=== PATIENT | female | born 1975 ===

== ENCOUNTER 2025-03-23 06:21 | Day surgery (SDC) | payer OTHER, SELFPAY ==
[2025-03-15 11:22] LABS: Hematocrit 39.2 % (37.0-47.0); Hemoglobin 13.6 g/dL (12.0-16.0); Mean Corp Hgb Conc. 34.7 g/dL (33.0-37.0); Mean Corpuscular Volume 92.0 fL (81.0-99.0); Platelet Count 260 10^3/uL (130-400); Red Cell Dist. Width 11.6 % (11.5-14.5)
[2025-03-15 11:30] LABS: INR 0.89; PT 12.4 Sec (11.4-14.6)
[2025-03-15 11:31] LABS: APTT 25.7 Sec (23.4-35.0)
[2025-03-15 11:55] LABS: ALT (SGPT) 21 U/L (0-35); AST (SGOT) 30 U/L (14-36); Albumin 4.5 g/dl (3.5-5.0); Alkaline Phosphatase 81 U/L (38-126); Blood Urea Nitrogen 11 mg/dl (7-17); Calcium 9.2 mg/dl (8.4-10.2); Carbon Dioxide 27 mmol/L (22-30); Chloride 104 mmol/L (98-107); Glucose 73 mg/dl (70-99); Potassium 4.3 mmol/L (3.5-5.1); Sodium 136 mmol/L (135-145); Total Protein 7.1 g/dl (6.3-8.2); eGFR > 60.00
[2025-03-15 14:16] VITALS: BMI 25.5
[2025-03-23] VITALS (10 sets, daily range): BP systolic 120–145; BP diastolic 78–92; BMI 25.5
[2025-03-23] MEDS: TYLENOL 1000 MG PO (11:05)
[2025-03-23] MEDS: NEURONTIN 300 MG PO (11:05)
[2025-03-23] MEDS: NORMOSOL-R/PLASMALYTE-A 1000 IV (11:06)
[2025-03-23] MEDS: TRANSDERM-SCOP 1 PATCH TRANSDERM (12:34)
[2025-03-23] MEDS: HEPARIN 5000 UNITS SC (12:34)
--- NOTE | 2025-03-23 14:26 | OR.RPT ---
Operative Report
Operative Report
DATE OF OPERATION: March 23, 2025
PREOPERATIVE DIAGNOSIS: Left Thyroid Nodule - E041
POSTOPERATIVE DIAGNOSIS: Same
SURGEON: Dash Stock M.D.
OPERATION: Left Thyroidectomy and Limited Neck Dissection - [id number]
ANESTHESIA: GET
ESTIMATED BLOOD LOSS: 15 cc
DRAINS: None
SPECIMEN: left total thyroid lobe and isthmus, and left level paratracheal tissue
FINDINGS: left thyroid nodule
COMPLICATIONS: None
PROCEDURE:
The patient was taken to the operating room and placed in the usual supine position. After adequate general endotracheal anesthesia was established, the patient�s neck was extended, prepped, and draped in the typical sterile fashion. A 4 cm
transcervical incision was made two fingerbreadths above the sternal notch. The skin incision was made with the #15 blade, which was taken through the skin into the subcutaneous tissue. The underlying platysma muscle was divided, and subplatysmal
flaps were created superiorly to the thyroid cartilage and inferiorly to the sternal notch. Strap muscles were identified and at the midline.
Attention was turned to the patient�s left thyroid lobe. The left thyroid lobe was mobilized medially. During this process, the left middle thyroid vein and inferior thyroid artery were dissected and ligated with Ligasure. Next, the left superior
pole was taken down by dissecting and transecting the superior pole vessels with a Ligasure. The left thyroid lobe was mobilized medially. During this process, the left recurrent laryngeal nerve was identified and preserved throughout its entire
course. The left superior parathyroid gland was identified and preserved. The left thyroid lobe with isthmus was resected from the trachea and sent to the pathology department.
At this time, the left level six neck dissection was performed. The tissue between the left carotid artery to the trachea into the anterior mediastinum was carefully dissected. The previously identified recurrent laryngeal nerve and parathyroid
gland were preserved. The tissue was removed and sent to the pathology department.
After achieving adequate hemostasis, the strap muscle was approximated with #3-0 Vicryl in a running fashion, and the platysma muscles were reapproximated with #3-0 Vicryl in an interrupted manner. The skin was then closed with #4-0 Monocryl in a
running subcuticular technique. Steri-strips and sterile dressings were applied. The patient tolerated the procedure well. The final instrument, needle, and sponge counts were correct.
[2025-03-23] MEDS: DILAUDID 0.25 MG IV (14:49)
--- NOTE | 2025-03-23 15:34 | PTCARENOTE ---
Addendum..Patient noted to have inverted P waves on the monitor, asymptomatic/VSS. Resting comfortably. dr Jimenez made aware, reported this also occured in OR, no further orders. Will transfer to [facility] when patient meets criteria.
[2025-03-23] MEDS: ROXICODONE 5 MG PO (16:29)
== END 2025-03-23 16:42 | disposition home or self-care (01) ==
LOC: SDS 06:21
PROVIDERS: ATTENDING PHYSICIAN Surgery; FAMILY PHYSICIAN Family Medicine
DX: D34 Benign neoplasm of thyroid gland (principal); E04.1 Nontoxic single thyroid nodule
CPT/HCPCS: 60252; 36415; 80053; 85027; 85610; 85730; 88307; 93005